=== PATIENT | male | born 2000 | race Caucasian/White ===

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

== ENCOUNTER 2020-02-01 16:49 | Emergency (ER) | payer SELFPAY ==
[2020-02-01 16:51] VITALS: BP 133/66; PULSE 81; RESP 18; O2SAT 99; BMI 22.4
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
--- NOTE | 2020-02-01 17:17 | PC.NURSE ---
pt to xray
--- NOTE | 2020-02-01 17:17 | PC.NURSE ---
pt gone to rad
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
[2020-02-01 19:00] VITALS: BP 133/66; PULSE 81; RESP 18; TEMP 36.7; O2SAT 99
== END 2020-02-01 19:00 | disposition home or self-care (01) ==
PROVIDERS: Emergency Provider Family Medicine
DX: S81.011A Laceration without foreign body, right knee, initial encounter (principal); V29.9XXA Motorcycle rider (driver) (passenger) injured in unspecified traffic accident, initial encounter; F17.210 Nicotine dependence, cigarettes, uncomplicated
CPT/HCPCS: 12002; 73562; 99282

== ENCOUNTER 2020-03-17 13:22 | Emergency (ER) | payer MEDICAID, SELFPAY ==
[2020-03-17 13:41] VITALS: BMI 22.4
[2020-03-17 13:55] VITALS: RESP 19; TEMP 36.8; O2SAT 99; BMI 22.4
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
[2020-03-17 13:59] LABS: Microscopic, Urine URINE MICROSCOPIC (MICROSCOPIC)
[2020-03-17 14:02] LABS: Appearance,Urine CLEAR (Clear); Blood, Urine Negative (Negative); Color,Urine AMBER (Yellow); Glucose,Urine (UA) Negative (Negative); Ketones,Urine TRACE (Negative); Leukocyte Esterase,Urine Negative (Negative); Nitrate,Urine Negative (Negative); Protein,Urine Negative (Negative); Specific Gravity, Urine >= 1.030 (1.005-1.030); Urobilinogen,Urine 0.2 EU/dl (0.2)
[2020-03-17 14:05] LABS: Bilirubin,Urine Negative (Negative)
[2020-03-17 14:12] VITALS: BP 127/78; PULSE 88; RESP 19; TEMP 36.8; O2SAT 99
[2020-03-17 14:12] LABS: Bacteria,Urine 1+ /lpf; Mucus,Urine 4+ /lpf
[2020-03-20 10:16] LABS: Neisseria gonorrhoeae, NAA Negative (Negative)
== END 2020-03-17 14:15 | disposition home or self-care (01) ==
PROVIDERS: Emergency Provider Nurse Practitioner Family; PCP Family Medicine
DX: Z20.2 Contact with and (suspected) exposure to infections with a predominantly sexual mode of transmission (principal)
CPT/HCPCS: 81001; 87491; 87591; 96372; 99202

== ENCOUNTER 2021-02-22 13:26 | Emergency (ER) | payer SELFPAY ==
[2021-02-22 13:26] VITALS: BP 116/62; PULSE 83; RESP 20; TEMP 36.9; O2SAT 98; BMI 25.0
--- NOTE | 2021-02-22 13:52 | XR_ITS ---
PROCEDURE: XR KNEE RT 3V CLINICAL INDICATION: pain COMPARISON: CR XR KNEE RT 3V from 02/01/2020 FINDINGS: No fracture or dislocation. No lytic or blastic change. There is normal mineralization. The joint spaces are well-preserved. No significant degenerative/arthritic changes. No erosive changes evident. Other findings:None. IMPRESSION: No acute findings. Dictated by: Brett Gipson MD 02/22/2021 15:38 Brett Gipson MD in [place] 02/22/2021 15:38
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
[2021-02-22 14:43] VITALS: BP 116/62; PULSE 83; RESP 20; TEMP 36.9; O2SAT 98
== END 2021-02-22 14:46 | disposition home or self-care (01) ==
PROVIDERS: Emergency Provider Nurse Practitioner Family
DX: M25.561 Pain in right knee (principal); M25.461 Effusion, right knee; F17.210 Nicotine dependence, cigarettes, uncomplicated
CPT/HCPCS: 73562; 99202; G0463

== ENCOUNTER 2021-04-14 19:56 | Emergency (ER) | payer BC, SELFPAY ==
[2021-04-14 21:17] VITALS: BP 135/67; PULSE 76; RESP 18; TEMP 36.9; O2SAT 98; BMI 25.7
[2021-04-14 21:22] VITALS: BP 135/67; PULSE 76; RESP 18; TEMP 36.9
[2021-04-14 21:22] LABS: UTC Strep Screen (Rapid) Positive (Negative)
--- NOTE | 2021-04-14 21:39 | HMH.EDUTC ---
[facility] [place] Clinical Impression: Strep throat Disposition: Home, Self-Care Condition on Discharge: Good Instructions: Strep Throat, DI for Strep Throat, Amoxicillin Additional Instructions: *Monitor Temp, Over the counter Motrin or Tylenol as directed/as needed Tylenol every 4 hours and Motrin every 6 hours (as long as your family doctor has told you that you can take it) for fever or pain. and straight to ER if unable to lower temp less than 101.0 after medication given *Warm salt water gargles may help to soothe the throat *Throat Lozenges *Warm fluids like tea with honey may help to soothe the throat *Sleep elevated *Humidifier/Vaporizer *If you did not take Penicillin shot or was unable to, start taking antibiotic immediately and make sure that you take it for the FULL length of time although you should start to feel better in 24-48 hours *change toothbrush and toothpaste 24-48 hours after starting to take antibiotics so you do not reinfect yourself Monitor Temp. Tylenol and/or Ibuprofen as needed. ER if fever is no less than 101 despite alternating Tylenol and Ibuprofen * Encourage fluids, water, Gatorade, powerade, pedialyte if /toddler/or child *Cold fluids, popsicles and ice cream may feel good on his throat Follow up IMMEDIATELY for new or worsening symptoms or no Noticeable improvement over the next 48-72 hours. 911 for difficulty breathing or swallowing Prescriptions: Amoxicillin [Amoxicillin 875MG Tab] 875 mg PO Q12H #20 tab Transmission Status: Pending to [facility] #[id number] Referrals: Provider,Referral, [Primary Care Provider] - As needed Time of Disposition: 21:44 Medical Decision Making - Sanju Inquiry Pt receiving controlled substance: No Sanju was queried for this patient: No Vital Signs: 04/14/21 21:17 04/14/21 21:22 Temperature 98.5 F 98.5 F Temperature Source Oral Pulse Rate 76 Pulse Rate [Left] 76 Respiratory Rate 18 18 Blood Pressure 135/67 Blood Pressure [Right Arm] 135/67 Blood Pressure Mean [Right Arm] 89 02 Sat by Pulse Oximetry 98 - Lab Data Lab results reviewed: Yes: I reviewed the patient's lab results. Lab Results 04/14/21 21:21: Strep Scn Rapid Clinic Positive A Orders (Tests/Meds): ED MEDICATIONS Discontinued Medications Generic Name Dose Route Start Last Admin Trade Name Olegario PRN Reason Stop Dose Admin Amoxicillin 500 mg 04/14/21 21:43 Amoxicillin 500mg Capsule PO 04/14/21 21:44 ONCE ONE [facility] [place] HPI - General Stated complaint: poss strep, sore throat,cough,CHÁVEZ Time Seen by Provider: 04/14/21 21:39 Mode of Arrival: Ambulatory Source of Information: Patient Limitations: No Limitations Description of Symptoms (Recalled from Triage Doc. by RN): runny nose, sore throat, CHÁVEZ and congestion HEENT Symptoms (Recalled from RN notes): Yes (sore throat, runny nose and CHÁVEZ) Resp Symptoms (Recalled from RN notes): No Skin Symptoms (Recalled from RN notes): No MS Symptoms (Recalled from RN notes): No Functional Status (Recalled from RN notes): na - History of Present Illness Provider Complaint: Patient states that he feels like he may have strep throat States that he has been having sore throat, head ache and body aches States that all his family has had it and thinks they give it to him - Related Data Previous Rx's Medication Instructions Recorded Sulfacetamide Sodium [Bleph-10] 1 drp EYE-RIGHT Q3H #1 bottle 02/12/19 Sulfamethoxazole/Trimethoprim 1 each PO BID 10 Days #20 tab 02/12/19 [Bactrim DS tablet] cephALEXin [Keflex 500mg Cap] 500 mg PO Q6H 10 Days #40 cap 02/12/19 Azithromycin 1,000 mg PO ONCE #2 tab 03/17/20 Ibuprofen [Ibuprofen 800mg 800 mg PO Q8HP PRN #30 tab 02/22/21 Tablet] Amoxicillin [Amoxicillin 875MG 875 mg PO Q12H #20 tab 04/14/21 Tab] Allergies Allergy/AdvReac Type Severity Reaction Status Date / Time No Known Allergies Allergy Verified 03/26/18 22:06 -
== END 2021-04-14 21:49 | disposition home or self-care (01) ==
PROVIDERS: Emergency Provider Nurse Practitioner
DX: J02.0 Streptococcal pharyngitis (principal)
CPT/HCPCS: 87880; 99202; G0463

== ENCOUNTER 2021-05-05 15:59 | Emergency (ER) | payer SELFPAY ==
[2021-05-05 16:00] VITALS: BP 158/83; PULSE 91; RESP 19; TEMP 37; O2SAT 96; BMI 26.3
--- NOTE | 2021-05-05 16:36 | HMH.EDUTC ---
[facility] [place] Disposition Clinical Impression: Athletes foot Qualifiers: Laterality: bilateral Qualified Code(s): B35.3 - Tinea pedis Disposition: Home, Self-Care Condition on Discharge: Good Instructions: Athlete's Foot, Athlete's Foot (Alternative Therapy) Additional Instructions: Clean feet well and make sure to pat dry Follow up with Podiatry for further evaluation and treatment if symptoms do not improve or worsen Return if needed Straight to ER if any life threatening symptoms Follow up with Family Doctor if no improvement Prescriptions: Miconazole Nitrate [Lotrimin AF] 1 applicatio TP BID 14 Days #90 gm Transmission Status: Pending to [facility] #[id number] Referrals: Provider,Referral, MD [Primary Care Provider] - As needed Sade Kaye DPM [Staff Physician] - Sharon Guevara APRN [Nurse Practitioner] - Time of Disposition: 17:00 Medical Decision Making - Sanju Inquiry Pt receiving controlled substance: No Sanju was queried for this patient: No Vital Signs: 05/05/21 16:00 Temperature 98.6 F Temperature Source Oral Pulse Rate [Right Radial] 91 H Respiratory Rate 19 Blood Pressure [Right Arm] 158/83 H Blood Pressure Mean [Right Arm] 108 02 Sat by Pulse Oximetry 96 - Radiology Data #1 Image(s): Pelvis [facility] [place] HPI - General Stated complaint: bilateral foot pain Time Seen by Provider: 05/05/21 16:36 Mode of Arrival: Ambulatory Source of Information: Patient Limitations: No Limitations Description of Symptoms (Recalled from Triage Doc. by RN): C/O red-like bruising on bottom of feet, burning sensation, and painful to walk on x2 days HEENT Symptoms (Recalled from RN notes): No Resp Symptoms (Recalled from RN notes): No Skin Symptoms (Recalled from RN notes): No MS Symptoms (Recalled from RN notes): No Functional Status (Recalled from RN notes): n/a - History of Present Illness Provider Complaint: Patient states that he wears boots alot States that he has been having burning like feeling in the bottom of both his feet for the last couple of days and hurts at times when he walks and they feel wet and itchy at times States that he has had similar symptoms in the past and that today he was having them again and his feet hurt so he came in to get them checked - Related Data Previous Rx's Medication Instructions Recorded Sulfacetamide Sodium [Bleph-10] 1 drp EYE-RIGHT Q3H #1 bottle 02/12/19 Sulfamethoxazole/Trimethoprim 1 each PO BID 10 Days #20 tab 02/12/19 [Bactrim DS tablet] cephALEXin [Keflex 500mg Cap] 500 mg PO Q6H 10 Days #40 cap 02/12/19 Azithromycin 1,000 mg PO ONCE #2 tab 03/17/20 Ibuprofen [Ibuprofen 800mg 800 mg PO Q8HP PRN #30 tab 02/22/21 Tablet] Amoxicillin [Amoxicillin 875MG 875 mg PO Q12H #20 tab 04/14/21 Tab] Miconazole Nitrate [Lotrimin AF] 1 applicatio TP BID 14 Days #90 gm 05/05/21 Allergies Allergy/AdvReac Type Severity Reaction Status Date / Time No Known Allergies Allergy Verified 03/26/18 22:06 - Worker's Comp Is this a Worker's Comp case?: No [facility] History - Hepatitis A Screen Drug use history?: No High risk sexual behaviors?: No History of sexually transmitted infection?: No Currently employed?: No Childcare worker?: No Do you have indoor plumbing?: Yes Do you have electricity?: Yes Attestation statement:: This patient has been screened for Hepatitis A risk factors. I have reviewed the patient's past medical history: Yes Medical History: Denies:: Diabetes Mellitus Type 1, Diabetes Mellitus Type 2, Hypertension Other Surgeries: Yes: No Previous Surgery Amputation: No Fractures: Yes (WRIST, ANKLE) - Social History Smoking Status: Current every day smoker Tobacco Type: cigarettes # Packs/Day (cigarettes): 1 Alcohol Intake: never Substance Use Type: denies use Occupational Status: other Housing: house Family Hx:: Asthma, Cancer ROS Obtained: Yes All systems reviewed & no additional complaints, Yes Systems reviewed
[2021-05-05 17:20] VITALS: BP 158/83; PULSE 91; RESP 19; TEMP 37; O2SAT 96
== END 2021-05-05 17:22 | disposition home or self-care (01) ==
PROVIDERS: Emergency Provider Nurse Practitioner
DX: B35.2 Tinea manuum (principal); F17.210 Nicotine dependence, cigarettes, uncomplicated
CPT/HCPCS: 99202; G0463

== ENCOUNTER 2021-07-09 06:26 | Emergency (ER) | payer SELFPAY ==
[2021-07-09 06:28] VITALS: BP 152/82; PULSE 92; RESP 18; TEMP 36.9; O2SAT 98; BMI 27.6
[2021-07-09 06:50] VITALS: BMI 27.6
--- NOTE | 2021-07-09 06:52 | CT_ITS ---
PROCEDURE INFORMATION: Exam: CT Abdomen And Pelvis With Contrast Exam date and time: 07/09/2021 6:52 AM Age: 21 years old Clinical indication: Abdominal pain; Additional info: Rlq pain with n/v/d TECHNIQUE: Imaging protocol: Computed tomography of the abdomen and pelvis with contrast. Radiation optimization: All CT scans at this facility use at least one of these dose optimization techniques: automated exposure control; mA and/or kV adjustment per patient size (includes targeted exams where dose is matched to clinical indication); or iterative reconstruction. Contrast material: ISOVUE; Contrast volume: 75 ml; Contrast route: IV; COMPARISON: No relevant prior studies available. FINDINGS: Lungs: 1.4 cm focus of airspace disease in the right lung base that may represent a focal infiltrate. Liver: Normal. No mass. Gallbladder and bile ducts: Normal. No calcified stones. No ductal dilation. Pancreas: Normal. No ductal dilation. Spleen: The spleen is mildly prominent. Adrenal glands: Normal. No mass. Kidneys and ureters: Normal. No hydronephrosis. Stomach and bowel: Unremarkable. No obstruction. No mucosal thickening. Appendix: The appendix is seen and is normal in appearance. Intraperitoneal space: Unremarkable. No free air. No significant fluid collection. Vasculature: Unremarkable. No abdominal aortic aneurysm. Lymph nodes: Unremarkable. No enlarged lymph nodes. Urinary bladder: Unremarkable as visualized. Reproductive: Unremarkable as visualized. Bones/joints: Unremarkable. No acute fracture. Soft tissues: Unremarkable. IMPRESSION: 1. 1.4 cm focus of airspace disease in the right lung base that may represent a focal infiltrate. 2. No definite evidence of acute abdominal or pelvic pathology. Remainder of findings as described above.
[2021-07-09 06:57] LABS: Basophils % 0.4 % (0.1-2.0); Eosinophils # 0.8 K/mm3 (0.0-0.4); Eosinophils % 13.4 % (0.1-12.0); Hemoglobin 14.4 g/dL (14.1-18.0); Influenza A, PCR Not Detected (NotDetected); Influenza B, PCR Not Detected (NotDetected); Lymphocytes # 0.2 K/mm3 (0.7-4.5); Lymphocytes % 3.5 % (10-50); Mean Corpuscular HGB Conc 34.2 g/dL (31.8-35.4); Mean Corpuscular Hemoglobin 28.8 pg (27.0-31.2); Mean Corpuscular Volume 84.1 fl (80-94); Mean Platelet Volume 6.8 fl (7.4-10.4); Monocytes # 0.8 K/mm3 (0.1-1.0); Monocytes % 12.7 % (1.7-9.3); Neutrophils # 4.3 K/mm3 (1.8-7.8); Neutrophils % 70.1 % (37.0-80.0); Platelet Count 184 K/mm3 (142-424); Red Blood Count 4.99 M/mm3 (4.60-6.20); Red Cell Distribution Width 12.9 % (11.5-17.5); White Blood Count 6.2 K/mm3 (4.8-10.8)
[2021-07-09 07:05] LABS: Microscopic, Urine URINE MICROSCOPIC (MICROSCOPIC)
[2021-07-09 07:06] LABS: Chloride 104 mmol/L (98-107); Potassium 3.6 mmoL/L (3.5-5.1); Sodium 141 mmol/L (136-145)
[2021-07-09 07:08] LABS: Amylase 56 U/L (30-110); Blood Urea Nitrogen 13 mg/dl (9-20)
[2021-07-09 07:09] LABS: Alanine Aminotransferase 25 U/L (12-78); Albumin Level 4.4 g/dl (3.5-5.0); Albumin/Globulin Ratio 1.5 (1.1-1.8); Alkaline Phosphatase 64 U/L (38-126); Anion Gap 13.6 mEq/L (5-15); Aspartate Amino Transferase 36 U/L (17-59); Bilirubin,Total 0.2 mg/dl (0.2-1.3); Calcium 8.9 mg/dl (8.4-10.2); Carbon Dioxide 27 mmol/L (22.0-30.0); Creatinine Clearance Estimated 200 mL/min (50-200); Estimated Glomerular Filt Rate 121 ml/min (>60); GFR (African American) 146 ML/MIN (>60); Globulin 2.9 g/dL (1.3-3.2); Glucose 120 mg/dl (74-100); Lipase 67 U/L (23-300); Total Protein,Serum 7.3 g/dl (6.3-8.2)
[2021-07-09 07:10] LABS: Appearance,Urine CLEAR (Clear); Bilirubin,Urine Negative (Negative); Blood, Urine Negative (Negative); Color,Urine YELLOW (Yellow); Glucose,Urine (UA) Negative (Negative); Ketones,Urine Negative (Negative); Leukocyte Esterase,Urine Negative (Negative); Nitrate,Urine Negative (Negative); Protein,Urine Negative (Negative); Specific Gravity, Urine 1.025 (1.005-1.030); Urobilinogen,Urine 0.2 EU/dl (0.2)
[2021-07-09 07:11] LABS: Strep Scrn Group A (Rapid) Negative (Negative)
[2021-07-09 07:14] LABS: C-Reactive Protein 7.7 mg/L (0-4)
[2021-07-09 07:29] LABS: Coronavirus 19, PCR Detected (NotDetected); Erythrocyte Sedimentation Rate 19 mm/hr (0-15)
[2021-07-09 07:46] LABS: Procalcitonin 0.043 ng/mL (0.0-2.0)
[2021-07-09 08:00] VITALS: BP 132/68; PULSE 68; O2SAT 100
--- NOTE | 2021-07-09 08:00 | PC.NURSE ---
Pt is resting in room comfortably.
--- NOTE | 2021-07-09 08:16 | HMH.EDNVD ---
ED Disposition Clinical Impression: COVID-19 Disposition: Home, Self-Care Condition on Discharge: Good Instructions: DI for COVID-19 (Suspected or Confirmed ) Additional Instructions: fluids and see pcp for follow up Prescriptions: dexAMETHasone [Decadron] 6 mg PO DAILY #7 tab Transmission Status: Pending to [facility] #[id number] Referrals: Provider,Referral, [Primary Care Provider] - - Critical Care Critical Care Time: No Attestation: On 07/09/21, the high probability of a clinically significant, sudden or life threatening deterioration of the following system(s) required my full and direct attention, intervention and personal management. The time I documented below is in addition to time spent performing reported procedures but includes the following listed in this critical care notation. Medical Decision Making - Medical Records Medical records reviewed: Yes: I reviewed the patient's medical records. - Sanju Inquiry Pt receiving controlled substance: No Vital Signs: 07/09/21 06:28 07/09/21 08:00 Temperature 98.4 F Temperature Source Oral Pulse Rate 68 Pulse Rate [Apical] 92 H Respiratory Rate 18 Blood Pressure 132/68 Blood Pressure [Right Arm] 152/82 H Blood Pressure Mean [Right Arm] 105 Blood Pressure Source [Right Arm] Automatic Cuff Blood Pressure Position [Right Arm] Sitting 02 Sat by Pulse Oximetry 98 100 Oxygen Delivery Method Room Air - Lab Data Lab results reviewed: Yes: I reviewed the patient's lab results. Lab Results 07/09/21 06:44: WBC 6.2, RBC 4.99, Hgb 14.4, Hct 42.0, MCV 84.1, MCH 28.8, MCHC 34.2, RDW 12.9, Plt Count 184, MPV 6.8 L, Neut % (Auto) 70.1, Lymph % (Auto) 3.5 L, [place] % (Auto) 12.7 H, Eos % (Auto) 13.4 H, Baso % (Auto) 0.4, Neut # (Auto) 4.3, Lymph # (Auto) 0.2 L, [place] # (Auto) 0.8, Eos # (Auto) 0.8 H, Baso # (Auto) 0.0, ESR 19 H 07/09/21 06:44: Sodium 141, Potassium 3.6, Chloride 104, Carbon Dioxide 27, Anion Gap 13.6, BUN 13, Creatinine 0.80, Estimated Creat Clear 200, Estimated GFR 121, Est GFR ( Amer) 146, Glucose 120 H, Calcium 8.9, Total Bilirubin 0.2, AST 36, ALT 25, Alkaline Phosphatase 64, C-Reactive Protein 7.7 H, Total Protein 7.3, Albumin 4.4, Globulin 2.9, Albumin/Globulin Ratio 1.5, Amylase 56, Procalcitonin 0.043 07/09/21 06:44: Group A Strep Rapid Negative 07/09/21 06:44: Lipase 67 07/09/21 06:44: SARS-CoV-2 (PCR) Detected A, Influenza A Untype (PCR) Not detected, Influenza Type B (PCR) Not detected 07/09/21 07:00: Urine Color Yellow, Urine Appearance Clear, Urine pH 6.0, Ur Specific [place] 1.025, Urine Protein Negative, Urine Glucose (UA) Negative, Urine Ketones Negative, Urine Blood Negative, Urine Nitrate Negative, Urine Bilirubin Negative, Urine Urobilinogen 0.2, Ur Leukocyte Esterase Negative, Urine RBC None, Urine WBC None, Ur Squamous Epith Cells None, Urine Bacteria None Result diagrams: 07/09/21 06:44 07/09/21 06:44 Orders (Tests/Meds): ED MEDICATIONS Discontinued Medications Generic Name Dose Route Start Last Admin Trade Name Olegario PRN Reason Stop Dose Admin Sodium Chloride 1,000 mls @ 999 mls/hr 07/09/21 07:00 07/09/21 06:56 Sod Chlor 0.9% 1000ml Bag IV 07/09/21 08:00 999 mls/hr .Q1H1M FANY Administration Iopamidol 75 ml 07/09/21 07:19 07/09/21 07:20 Iopamidol-370 (76%);100ml Bottle IV 07/09/21 07:20 75 ml ONCE ONE Administration Ketorolac Tromethamine 30 mg 07/09/21 06:52 07/09/21 06:56 Ketorolac 30mg/Ml Vial IV 07/09/21 06:53 30 mg ONCE ONE Administration Ondansetron HCl 4 mg 07/09/21 06:52 07/09/21 06:56 Ondansetron 4mg/2ml Vial IV 07/09/21 06:53 4 mg ONCE ONE Administration Sodium Chloride 10 ml 07/09/21 07:19 07/09/21 07:20 Sodium Chloride 0.9% 10ml Syr (Rad Only) IV 07/09/21 07:20 10 ml ONCE ONE Administration ORDERS Category Date Time Status Strep Screen Confirmation Stat Micro 07/09/21 06:44 Received - CT Data CT Scan: Stef
--- NOTE | 2021-07-09 08:52 | PC.NURSE ---
Pt is resting in room comfortably.
[2021-07-09 09:41] VITALS: BP 147/93; PULSE 89; RESP 18; TEMP 36.8; O2SAT 100
== END 2021-07-09 09:41 | disposition home or self-care (01) ==
PROVIDERS: Emergency Provider Emergency Medicine
DX: U07.1 COVID-19 (principal); F17.210 Nicotine dependence, cigarettes, uncomplicated
CPT/HCPCS: 74177; 80053; 81001; 82150; 83690; 84145; 85025; 85651; 86140; 87430; 96365; 96375; 99283; C9803; J2405; Q9967; U0003; U0005

== ENCOUNTER 2021-12-10 17:36 | Emergency (ER) | payer SELFPAY ==
[2021-12-10 17:50] VITALS: BP 131/74; PULSE 78; RESP 19; TEMP 36.6; O2SAT 98; BMI 25.0
--- NOTE | 2021-12-10 18:08 | HMH.EDUTC ---
[facility] [place] Clinical Impression: Sinusitis Qualifiers: Sinusitis location: unspecified location Chronicity: acute Recurrence: non-recurrent Qualified Code(s): J01.90 - Acute sinusitis, unspecified Disposition: Home, Self-Care Condition on Discharge: Good Instructions: Sinusitis, DI for Sinusitis Additional Instructions: Drink plenty of fluids. Take tylenol or ibuprofen for pain or fever. Take the medications as directed. Follow up with your regular doctor. GO TO THE ER FOR ANY WORSENING SYMPTOMS Don't start the oral steroids until tomorrow, since you had the shot here today. Prescriptions: Brompheniramine/Pseudoephed/Dm [Bromfed Dm Cough Syrup] 5 ml PO Q6HP PRN #240 ml PRN Reason: Cough [facility]: [id number] methylPREDNISolone [Medrol] 4 mg PO DIRECTED 6 Days #21 packet Transmission Status: Pending to [id number] Azithromycin [Z-Miguel 250mg Tab*] 250 mg PO UD DOSE PK #6 tab Transmission Status: Pending to [id number] Referrals: Provider,Referral, MD [Primary Care Provider] - Forms: Work/School Release Time of Disposition: 18:46 Medical Decision Making - Medical Records Medical records reviewed: No: I reviewed the patient's medical records. - Sanju Inquiry Pt receiving controlled substance: No Vital Signs: 12/10/21 17:50 12/10/21 18:10 Temperature 97.8 F 97.8 F Temperature Source Oral Pulse Rate 78 Pulse Rate [Right Brachial] 78 Respiratory Rate 19 19 Blood Pressure 131/74 Blood Pressure [Right Arm] 131/74 Blood Pressure Mean [Right Arm] 93 Blood Pressure Source [Right Arm] Automatic Cuff Blood Pressure Position [Right Arm] Sitting 02 Sat by Pulse Oximetry 98 Oxygen Delivery Method Room Air Orders (Tests/Meds): ED MEDICATIONS Discontinued Medications Generic Name Dose Route Start Last Admin Trade Name Freq PRN Reason Stop Dose Admin Dexamethasone Sodium Phosphate 8 mg 12/10/21 18:18 12/10/21 18:24 Dexamethasone 4mg/Ml 1ml Vial IM 12/10/21 18:19 8 mg ONCE ONE Administration [facility] [place] HPI - General Stated complaint: sore throat,cough,sofya Time Seen by Provider: 12/10/21 18:08 Mode of Arrival: Ambulatory Source of Information: Patient Limitations: No Limitations Description of Symptoms (Recalled from Triage Doc. by RN): PATIENT C/O RUNNY NOSE, SORE THROAT, COUGH, SNEEZING, AND NAUSEA SINCE LAST NIGHT HEENT Symptoms (Recalled from RN notes): Yes Resp Symptoms (Recalled from RN notes): Yes Skin Symptoms (Recalled from RN notes): No MS Symptoms (Recalled from RN notes): No Functional Status (Recalled from RN notes): WNL - History of Present Illness Provider Complaint: He c/o sinus congestion, cough and feeling bad for the past 2 days. - Related Data Previous Rx's Medication Instructions Recorded Sulfacetamide Sodium [Bleph-10] 1 drp EYE-RIGHT Q3H #1 bottle 02/12/19 Sulfamethoxazole/Trimethoprim 1 each PO BID 10 Days #20 tab 02/12/19 [Bactrim DS tablet] cephALEXin [Keflex 500mg Cap] 500 mg PO Q6H 10 Days #40 cap 02/12/19 Azithromycin 1,000 mg PO ONCE #2 tab 03/17/20 Ibuprofen [Ibuprofen 800mg 800 mg PO Q8HP PRN #30 tab 02/22/21 Tablet] Amoxicillin [Amoxicillin 875MG 875 mg PO Q12H #20 tab 04/14/21 Tab] Miconazole Nitrate [Lotrimin AF] 1 applicatio TP BID 14 Days #90 gm 05/05/21 dexAMETHasone [Decadron] 6 mg PO DAILY #7 tab 07/09/21 Azithromycin [Z-Miguel 250mg Tab*] 250 mg PO UD DOSE PK #6 tab 12/10/21 Brompheniramine/Pseudoephed/Dm 5 ml PO Q6HP PRN #240 ml 12/10/21 [Bromfed Dm Cough Syrup] methylPREDNISolone [Medrol] 4 mg PO DIRECTED 6 Days #21 12/10/21 packet Allergies Allergy/AdvReac Type Severity Reaction Status Date / Time No Known Allergies Allergy Verified 03/26/18 22:06 - Worker's Comp Is this a Worker's Comp case?: No H History - Hepatitis A Screen Attestation statement:: This patient has been screened for Hepatitis A risk fact
[2021-12-10 18:10] VITALS: BP 131/74; PULSE 78; RESP 19; TEMP 36.6; O2SAT 98
== END 2021-12-10 18:49 | disposition home or self-care (01) ==
PROVIDERS: Emergency Provider Nurse Practitioner Family
DX: J01.90 Acute sinusitis, unspecified (principal); F17.210 Nicotine dependence, cigarettes, uncomplicated
CPT/HCPCS: 96372; 99212; G0463

== ENCOUNTER → 2022-02-07 09:46 | Outpatient (CLI) | payer SELFPAY | PROVIDERS: Visit Provider Nurse Practitioner Family | DX: Z13.89 Encounter for screening for other disorder (principal); Z01.10 Encounter for examination of ears and hearing without abnormal findings ==

== ENCOUNTER 2022-08-18 13:02 | Emergency (ER) | payer SELFPAY ==
[2022-08-18 13:50] VITALS: BP 139/78; PULSE 76; RESP 20; TEMP 37.1; O2SAT 98; BMI 26.9
--- NOTE | 2022-08-18 13:57 | XR_ITS ---
FINAL REPORT CLINICAL HISTORY: PAIN LOW BACK FINDINGS: AP and lateral views of the lumbar spine were obtained. There is no prior exam for comparison. There is no acute fracture or malalignment. There is mild degenerative disease at L5-S1 with disc space narrowing. The paraspinal soft tissues are normal. 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 Reviewed, Interpreted and Dictated by Caridad Odell MD Transcribed by Annemarie Samuels Authenticated and [facility]
--- NOTE | 2022-08-18 14:49 | EXP.UTC ---
Discharge Plan Disposition Patient Disposition: Home, Self-Care Condition: Good Prescriptions Prescriptions: New ibuprofen [IBU] 800 mg tablet 800 mg PO TIDP PRN (Reason: Moderate Pain) Qty: 20 0RF No Action azithromycin 500 MG tablet 1,000 mg PO ONCE Qty: 2 0RF Rx Instructions: TOTAL IRIA=[id number] MG ibuprofen 800 MG tablet 800 mg PO Q8HP PRN (Reason: Moderate Pain) Qty: 30 0RF amoxicillin 875 MG tablet 875 mg PO Q12H Qty: 20 0RF dexamethasone 6 MG tablet 6 mg PO DAILY Qty: 7 0RF azithromycin 250 MG tablet 250 mg PO UD DOSE PK Qty: 6 0RF Rx Instructions: Take two (2) tablets today, then one (1) tablet days #2 thru #5 methylprednisolone 4 MG tablets,dose pack 4 mg PO DIRECTED 6 Days Qty: 21 0RF zukryjaokqpllhi-cdzkubzui-IJ 118 ML syrup 5 ml PO Q6HP PRN (Reason: Cough) Qty: 240 0RF sulfamethoxazole-trimethoprim 1 EACH tablet 1 each PO BID 10 Days Qty: 20 0RF cephalexin 500 MG capsule 500 mg PO Q6H 10 Days Qty: 40 0RF sulfacetamide sodium 5 ML drops 1 drp EYE-RIGHT Q3H Qty: 1 7RF miconazole nitrate 90 GM powder 1 applicatio TP BID 14 Days Qty: 90 0RF Rx Instructions: Apply to clean dry feet in am and in Pm Referrals Follow up/Referrals: Provider,Referral, MD [Primary Care Provider] - See instructions Activity Restrictions/Add. Instructions Additional Instructions/Restrictions: Ibuprofen alpesh 6 hours with meal as needed for pain/inflammation *Not additional anti-inflammatory like motrin, aleve, advil with the above amount of ibuprofen. You can still take Tylenol every 4 hours as needed if you need something else for pain *Ice 20 minutes every 2 hours for the first 48 hours after the initial injury followed by moist heat every 20 minutes 3-4 times a day to affected area *Keep this area active, no movement leads to more stiffness, However take it easy and avoid heavy lifting pushing or pulling *Follow up with you family doctor if no improvement for further treatment ? Clinical Impressions Clinical Impression: Low back pain Stand Alone Forms Stand Alone Forms: Work/School Release Instructions Patient Instructions: DI for Low Back Pain, Low Back Pain Discharge ED Provider: Sammie Pulido [facility] General Stated complaint: Back pain, no accident Mode of Arrival: Ambulatory Source of Information: Patient Limitations: No Limitations Time Seen by Provider: 08/18/22 14:49 Description of Symptoms (Recalled from Triage Doc. by RN): PATIENT C/O LOWER BACK PAIN THAT HAS BEEN GOING ON FOR APPROX 2 YEARS. NO KNOWN INJURY. HEENT Symptoms (Recalled from RN notes): No Resp Symptoms (Recalled from RN notes): No Skin Symptoms (Recalled from RN notes): No MS Symptoms (Recalled from RN notes): Yes Functional Status (Recalled from RN notes): WNL History of Present Illness Provider Complaint: Patient states that he has been having pain in his lower back area for several years that is worse at times States that pain comes and goes and at times feels like he has a catch in his back Denies known injury reports that his wanted him to come in and get it checked Related Data Previous Rx's Medication Instructions Recorded cephalexin 500 mg capsule 500 mg PO Q6H 10 days #40 caps 02/12/19 sulfacetamide sodium 10 % eye drops 1 drp EYE-RIGHT Q3H ##1 02/12/19 sulfamethoxazole 800 1 each PO BID 10 days #20 tabs 02/12/19 mg-trimethoprim 160 mg tablet azithromycin 500 mg tablet 1,000 mg PO ONCE #2 tabs 03/17/20 ibuprofen 800 mg tablet 800 mg PO Q8HP PRN Moderate Pain 02/22/21 #30 tabs amoxicillin 875 mg tablet 875 mg PO Q12H #20 tabs 04/14/21 miconazole nitrate 2 % topical 1 applicatio TP BID 14 days ##90 05/05/21 powder dexamethasone 6 mg tablet 6 mg PO DAILY #7 tabs 07/09/21 azithromycin 250 mg tablet 250 mg PO UD DOSE PK #6 tabs 12/10/21 zceusbxtwqrpjfh-tylqtikpqenyxnu-CL 5 ml PO Q6HP PRN Cough #240 mL
[2022-08-18 15:23] VITALS: BP 139/78; PULSE 76; RESP 20; TEMP 37.1; O2SAT 98
== END 2022-08-18 15:26 | disposition home or self-care (01) ==
PROVIDERS: Emergency Provider Nurse Practitioner
DX: M54.50 Low back pain, unspecified (principal)
CPT/HCPCS: 72100; 99212; 99213; G0463

== ENCOUNTER 2024-09-09 15:49 | Outpatient (CLI) | payer BC, SELFPAY ==
[2024-09-09 20:06] LABS: Coronavirus 19, PCR Not Detected (NotDetected); Influenza A, PCR Not Detected (NotDetected); Influenza B, PCR Not Detected (NotDetected)
== END 2024-09-09 23:59 | disposition home or self-care (01) ==
LOC: LAB.DROPOF 09-10 11:49
PROVIDERS: PCP Student in an Organized Health Care Education/Training Program; Visit Provider Student in an Organized Health Care Education/Training Program
DX: Z20.822 Contact with and (suspected) exposure to COVID-19 (principal); Z11.52 Encounter for screening for COVID-19
CPT/HCPCS: 87636